=== PATIENT | male | born 1990 | race African-American/Black ===

== ENCOUNTER 2017-08-04 18:17 | Emergency (ER) | payer SELFPAY ==
[~2017-08-04] VITALS: Ht 182.9 cm; Wt 68.0 kg
[2017-08-04 19:00] VITALS: BP 137/94
[2017-08-04] MEDS ORDERED: IBUPROFEN 600 MG TAB PO ONE (21:15)
== END 2017-08-04 22:20 | disposition home or self-care (01) ==
LOC: ER 18:17
DX: S52.502A Unspecified fracture of the lower end of left radius, initial encounter for closed fracture (principal); W19.XXXA Unspecified fall, initial encounter; Y93.89 Activity, other specified; Y99.8 Other external cause status; Y92.89 Other specified places as the place of occurrence of the external cause; Z91.041 Radiographic dye allergy status
CPT/HCPCS: 29125; 73110